=== PATIENT | female | born 1990 | race Caucasian/White ===

== ENCOUNTER 2021-04-22 09:40 | Emergency (ER) | payer OTHER ==
[~2021-04-22] VITALS: Ht 160 cm; Wt 79.2 kg
[2021-04-22 09:47] VITALS: BP 95/49
--- NOTE | 2021-04-22 09:50 | NUR ---
PATIENT AMBULATED TO BED 11.
[2021-04-22] MEDS ORDERED: PRED50TA2 PO (10:08)
[2021-04-22] MEDS ORDERED: LANO1OIN26 OP (10:08)
[2021-04-22] MEDS ORDERED: DEXT15DR6 OP (10:08)
[2021-04-22] MEDS ORDERED: ACYC400T14 PO (10:08)
--- NOTE | 2021-04-22 10:10 | NUR ---
AT PT BEDSIDE
--- NOTE | 2021-04-22 10:15 | NUR ---
30 Y/O FEMALE BIB MOTHER FOR C/O RIGHT FACE WEAKNESS, BEHIND RIGHT EAR PAIN X YESTERDAY. PT. DENIES OROURKE, BLURRY VISION, N/V , FEVER OR CHILLS. PT SPEAKS IN COMPLETE SENTENCES, A&O X4. BED IN LOWEST POSITION. BED RAIL X1. PMH: DEPRESSION/ADD MEDS: PEROXETINE/ADERRAL NKA
[2021-04-22 10:26] VITALS: BP 95/49
--- NOTE | 2021-04-22 10:28 | NUR ---
Patient discharged with v/s stable. Written and verbal after care instructions given and explained. Patient alert, oriented and verbalized understanding of instructions. Ambulatory with steady gait. All questions addressed prior to discharge. ID band removed. Patient advised to follow up with PMD. Rx of ACYCLOVIR, DEXTRAN, MINERAL OIL/PETROLATUM, PREDNISONE given. Patient educated on indication of medication including possible reaction and side effects. Opportunity to ask questions provided and answered.
== END 2021-04-22 10:28 | disposition home or self-care (01) ==
LOC: MED 09:40
DX: G51.0 Bell's palsy (principal); F32.9 Major depressive disorder, single episode, unspecified; Z79.899 Other long term (current) drug therapy; Z88.8 Allergy status to other drugs, medicaments and biological substances
CPT/HCPCS: 99283